=== PATIENT | male | born 1945 | race Caucasian/White ===

== ENCOUNTER 2022-06-15 12:57 | Inpatient (IN) ==
[2022-06-15] MEDS ORDERED: SODIUM CHLORIDE 0.9% 1000ML 500 ML IV ONE (13:31)
[2022-06-15] MEDS ORDERED: ACETAMINOPHEN 500 MG TAB PO STA (13:33)
--- NOTE | 2022-06-15 13:37 | Emergency Department Note ---
Impression & Plan Acute UTI, Leukocytosis, Dysuria, Fever ED Provider Note NAME: PERLA GAUTAM AGE: 76 SEX: M : 1945 ARRIVES VIA: Walk-In INFORMANT: [Patient][family] ED PROVIDER(S): [Odell De La Vega MD] CHIEF COMPLAINT: Bladder pain HISTORY OF PRESENT ILLNESS: The patient is a 76-year-old male states that around 10 hours ago, he woke from sleep with fever, chills and the urge to urinate. He had a hard time going to the bathroom and it did burn to urinate. He does have body aching. He denies flank pain, no increased cough or congestion, he has chronic dyspnea from COPD. Patient does have a history of prostate surgery for obstruction, he had a catheter at that timeframe but has not had a Marie catheter since. PMHx/PSHx: See Below SOCIAL HISTORY: See Below. PHYSICAL EXAM: GENERAL: Patient is in no acute distress. HEENT: No acute trauma, normocephalic atraumatic, mucous membranes moist, no myles al congestion. NECK: No stridor, no adenopathy, no meningismus, trachea is midline. LUNGS: Diminished breath sounds bilaterally with some occasional crackles, breath sounds are equal, no respiratory distress. HEART: Without murmurs gallops or rubs, regular rate and rhythm. ABDOMEN: Soft, nontender, bowel sounds positive, no peritonitis. EXTREMITIES: No cyanosis, trace to mild bilateral pedal edema, full range of motion of all the joints without pain or difficulty, no signs for acute trauma. NEUROLOGIC: Oriented x 3, no acute motor or sensory deficits, no focal weakness. SKIN: No rash, no jaundice, no diaphoresis. Back: No flank discomfort to percussion. DIFFERENTIAL DIAGNOSIS: Sepsis or bacteremia, urinary obstruction, kidney stone, UTI, pyelonephritis, diverticulitis, electrolyte imbalance or renal failure, viral illness, among others. EMERGENCY DEPARTMENT COURSE/PROCEDURES: Prior/Outside records reviewed: None. Bladder scan showed 49 cc, no significant retention. MEDICAL DECISION MAKING: There is a significant leukocytosis of 27,000, this would be consistent with infection. There is a normal hemoglobin and platelet count. Sodium slightly low but not in need of emergent correction. No renal failure. Lactic acid level was not elevated making severe sepsis less likely. There was no concerning liver enzyme elevation. No evidence for pancreatitis. Urinalysis does suggest infection. COVID test returned negative. Abdominal and pelvis CT did not show any evidence for urinary obstruction, no diverticulitis. No acute surgical process by CT imaging. Bladder scan showed only 49 cc, no significant retention. Chest film per my review did not show mediastinal widening, pneumonia or free air. On exam, the patient did not have any abdominal discomfort, he was resting comfortably. The patient received IV saline, cc. He was given IV cefepime, IV morphine. He was given oral Tylenol. The patient is currently resting comfortably. Given the high white count, given his complaints, given the urinary findings, I do think hospitalization would be warranted. I spoke with the patient and case management, the on-call hospitalist was consulted. DISPOSITION: The patient's presentation and findings warrant a hospital stay. Past Med/Surg History Medical History BPH (benign prostatic hyperplasia) s/p TURP type laser procedure COPD (chronic obstructive pulmonary disease) GERD (gastroesophageal reflux disease) History of testicular cancer Hyperlipidemia Hypertension Lung cancer Prediabetes Testicular cancer Tremor Family History (Updated 02/17/22 @ 10:58 by KRISTIN Garcia) Other Allergies Cancer Emphysema lung Lung disease Denies family history of Diabetes Heart disease Asthma Social History Smoking Status: Former smoker Tobacco Type: Cigarettes Age Started Using Tobacco: 15; packs per day: 1; Hx Alcohol Use: Yes Hx Substance Use: No Preferred Language: [place] Feels Safe at Home: Yes Allergies Allergies Allergy/AdvReac Type Severity Reaction Status Date / Time bee venom protein (honey bee) Allergy Severe Anaphylaxis Verified 06/15/22 17:05 atorvastatin Allergy Intermediate Muscle Pain Verified 06/15/22 17:05 Home Meds Home Medications Medication Instructions Recorded Confirmed acetaminophen 650 mg 650 mg PO Q8H 02/10/22 06/15/22 tablet,extended release (Tylenol 8 Hour) amlodipine 10 mg tablet 10 mg PO DAILY 02/10/22 06/15/22 budesonide 160 mcg-glycopyr 9 2 inh inhalation BID 02/10/22 06/15/22 mcg-formot 4.8 mcg/actuation HFA inhaler (Breztri Aerosphere) cholecalciferol (vitamin D3) 25 25 mcg PO DAILY 02/10/22 06/15/22 mcg (1,000 unit) capsule epinephrine 1 mg/mL injection 1 mg IM Q20M PRN Anaphylaxis 02/10/22 06/15/22 solution glucosamine HCl 1,500 mg tablet 1,500 mg PO DAILY 02/10/22 06/15/22 losartan 100 mg tablet 100 mg PO DAILY 02/10/22 06/15/22 lutein extract 15 mg-zeaxanthin 1 cap PO BID 02/10/22 06/15/22 extract 0.7 mg capsule metoprolol succinate 50 mg 50 mg PO DAILY 02/10/22 06/15/22 tablet,extended release 24 hr multivitamin 1 tab PO DAILY 02/10/22 06/15/22 rabeprazole 20 mg tablet,delayed 20 mg PO BID 02/10/22 06/15/22 release (AcipHex) red yeast rice 600 mg capsule 600 mg PO BID 02/10/22 06/15/22 vitamin B complex (Vitamins B 1 cap PO DAILY 02/10/22 06/15/22 Complex capsule) duloxetine 60 mg capsule,delayed 60 mg PO DAILY 02/17/22 06/15/22 release (Cymbalta) primidone 50 mg tablet 50 mg PO BID 06/15/22 06/15/22 Results & Data (ED) Vital Signs Vital Signs - 24 hr 06/15/22 13:01 06/15/22 14:32 06/15/22 14:30 Temperature 36.6 C Temperature Source Oral Pulse Rate 110 H Pulse Rate [Apical] 108 H Pulse Rhythm Regular Pulse Rhythm [Apical] Regular Pulse Strength Normal Pulse Strength [Apical] Respiratory Rate 22 24 Respiratory Effort / Characteristics Non-Labored Spontaneous Non-Labored Spontaneous Respiratory Depth Normal Normal Respiratory Pattern Regular Blood Pressure 147/67 H Blood Pressure [Right Arm] 147/77 H Blood Pressure Mean 93 Blood Pressure Mean [Right Arm] 100 Blood Pressure Position Sitting Blood Pressure Position [Right Arm] Pulse Oximetry 95 94 94 Oxygen Delivery Method Room Air Room Air Room Air Sepsis Recent Fever Within 48 Hours Yes Sepsis New/Unexplained Change in Mental Status No Sepsis Action Taken by Nursing No Action Required 06/15/22 14:38 06/15/22 16:00 06/15/22 17:00 Temperature Temperature Source Pulse Rate 107 H Pulse Rate [Apical] 103 H 102 H Pulse Rhythm Pulse Rhythm [Apical] Regular Regular Pulse Strength Pulse Strength [Apical] Normal Normal Respiratory Rate 20 21 Respiratory Effort / Characteristics Non-Labored Spontaneous Non-Labored Spontaneous Respiratory Depth Normal Normal Respiratory Pattern Regular Regular Blood Pressure Blood Pressure [Right Arm] 133/71 129/78 Blood Pressure Mean Blood Pressure Mean [Right Arm] 91 95 Blood Pressure Position Blood Pressure Position [Right Arm] Lying Lying Pulse Oximetry 93 93 Oxygen Delivery Method Room Air Room Air Sepsis Recent Fever Within 48 Hours Sepsis New/Unexplained Change in Mental Status Sepsis Action Taken by [facility] Medications Current Medication List: was personally reviewed by me Laboratory Data Attestation: I reviewed the patient's lab results. 06/15/22 13:21 06/15/22 13:21 Lab Results 06/15/22 06/15/22 06/15/22 Range/Units 13:21 13:21 13:41 WBC 27.70 H (4.8-10.8) K/ul RBC 4.73 (4.70-6.10) M/uL Hgb 15.3 (14.0-18.0) g/dl Hct 44.4 (42.0-52.0) % MCV 93.9 (80.0-100.0) fL MCH 32.3 (25.0-34.0) pg MCHC 34.5 (32.0-36.0) g/dL RDW Std Deviation 46.9 H (36.4-46.3) fL RDW Coeff of Bryce 13.5 (11.5-14.5) % Plt Count 262 (130-400) K/uL MPV 9.3 L (9.4-12.4) fL Immature Gran % (Auto) 1.3 % Neut % (Auto) 81.9 % Lymph % (Auto) 6.5 % Cavalier % (Auto) 10.0 % Eos % (Auto) 0.1 % Baso % (Auto) 0.2 % Neut # (Auto) 22.68 H (1.40-6.50) K/uL Lymph # (Auto) 1.80 (1.2-3.4) K/uL Cavalier # (Auto) 2.77 H (0.11-0.59) K/uL Eos # (Auto) 0.03 (0-0.50) K/uL Baso # (Auto) 0.06 (0-0.2) K/uL Immature Gran # (Auto) 0.36 H (0.01-0.20) K/uL Hypersegmented Neuts 1+ Sodium 135 L (136-145) mmol/L Potassium 4.2 (3.5-5.1) mmol/L Chloride 103 (98-107) mmol/L Carbon Dioxide 24 (21-32) mmol/L Anion Gap 8 (3-11) BUN 16 (6-23) mg/dl Creatinine 0.98 (0.6-1.4) mg/dl Est Cr Clr Drug Dosing 78.8 ml/min Est GFR ( Amer) 85.8 ml/min Est GFR (Non-Af Amer) 74.1 ml/min BUN/Creatinine Ratio 16.3 (10-20) Glucose 111 H (70-99(Fasting)) mg/dl Lactate (0.4-2.0) mmol/L Calcium 9.1 (8.6-10.3) mg/dl Magnesium 1.8 (1.7-2.4) mg/dl Total Bilirubin 0.7 (0.2-1.0) mg/dl AST 29 (13-39) U/L ALT 36 (7-52) U/L Alkaline Phosphatase 82 (34-104) U/L Total Protein 7.3 (6.0-8.3) gm/dl Albumin 4.2 (3.4-5.0) gm/dl Globulin 3.1 (2.5-4.0) gm/dl Albumin/Globulin Ratio 1.4 (0.9-2) Lipase 10 L (11-82) U/L Prostate Specific Ag (0-4) ng/ml Procalcitonin (0-0.5) ng/ml Urine Color Urine Appearance (Clear) Urine pH (4.5-7.5) Ur Specific Mack (1.000-1.030) Urine Protein (Negative) Urine Glucose (UA) (Negative) Urine Ketones (Negative) Urine Blood (Negative) Urine Nitrite (Negative) Urine Bilirubin (Negative) Urine Urobilinogen (Negative) Ur Leukocyte Esterase (Negative) Urine WBC (Auto) (0-5) /hpf Urine RBC (Auto) (0-4) /hpf U Hyaline Cast (Auto) (0-5) /lpf U Epithel Cells (Auto) (0-5) /lpf Urine Bacteria (Auto) (Negative) SARS-CoV-2, RNA, NAAT NEGATIVE (NEGATIVE) 06/15/22 06/15/22 06/15/22 Range/Units 13:41 14:18 16:14 WBC (4.8-10.8) K/ul RBC (4.70-6.10) M/uL Hgb (14.0-18.0) g/dl Hct (42.0-52.0) % MCV (80.0-100.0) fL MCH (25.0-34.0) pg MCHC (32.0-36.0) g/dL RDW Std Deviation (36.4-46.3) fL RDW Coeff of Bryce (11.5-14.5) % Plt Count (130-400) K/uL MPV (9.4-12.4) fL Immature Gran % (Auto) % Neut % (Auto) % Lymph % (Auto) % Cavalier % (Auto) % Eos % (Auto) % Baso % (Auto) % Neut # (Auto) (1.40-6.50) K/uL Lymph # (Auto) (1.2-3.4) K/uL Cavalier # (Auto) (0.11-0.59) K/uL Eos # (Auto) (0-0.50) K/uL Baso # (Auto) (0-0.2) K/uL Immature Gran # (Auto) (0.01-0.20) K/uL Hypersegmented Neuts Sodium (136-145) mmol/L Potassium (3.5-5.1) mmol/L Chloride (98-107) mmol/L Carbon Dioxide (21-32) mmol/L Anion Gap (3-11) BUN (6-23) mg/dl Creatinine (0.6-1.4) mg/dl Est Cr Clr Drug Dosing ml/min Est GFR ( Amer) ml/min Est GFR (Non-Af Amer) ml/min BUN/Creatinine Ratio (10-20) Glucose (70-99(Fasting)) mg/dl Lactate 1.6 (0.4-2.0) mmol/L Calcium (8.6-10.3) mg/dl Magnesium (1.7-2.4) mg/dl Total Bilirubin (0.2-1.0) mg/dl AST (13-39) U/L ALT (7-52) U/L Alkaline Phosphatase (34-104) U/L Total Protein (6.0-8.3) gm/dl Albumin (3.4-5.0) gm/dl Globulin (2.5-4.0) gm/dl Albumin/Globulin Ratio (0.9-2) Lipase (11-82) U/L Prostate Specific Ag (0-4) ng/ml Procalcitonin 1.07 H (0-0.5) ng/ml Urine Color Dark Yellow Urine Appearance Clear (Clear) Urine pH 5.5 (4.5-7.5) Ur Specific Mack 1.015 (1.000-1.030) Urine Protein Trace H (Negative) Urine Glucose (UA) Negative (Negative) Urine Ketones Negative (Negative) Urine Blood 1+ H (Negative) Urine Nitrite Negative (Negative) Urine Bilirubin Negative (Negative) Urine Urobilinogen Negative (Negative) Ur Leukocyte Esterase 2+ H (Negative) Urine WBC (Auto) >30 H (0-5) /hpf Urine RBC (Auto) 5-10 H (0-4) /hpf U Hyaline Cast (Auto) 1-5 (0-5) /lpf U Epithel Cells (Auto) 0-5 (0-5) /lpf Urine Bacteria (Auto) 2+ H (Negative) SARS-CoV-2, RNA, NAAT (NEGATIVE) 06/15/22 Range/Units 16:14 WBC (4.8-10.8) K/ul RBC (4.70-6.10) M/uL Hgb (14.0-18.0) g/dl Hct (42.0-52.0) % MCV (80.0-100.0) fL MCH (25.0-34.0) pg MCHC (32.0-36.0) g/dL RDW Std Deviation (36.4-46.3) fL RDW Coeff of Bryce (11.5-14.5) % Plt Count (130-400) K/uL MPV (9.4-12.4) fL Immature Gran % (Auto) % Neut % (Auto) % Lymph % (Auto) % Cavalier % (Auto) % Eos % (Auto) % Baso % (Auto) % Neut # (Auto) (1.40-6.50) K/uL Lymph # (Auto) (1.2-3.4) K/uL Cavalier # (Auto) (0.11-0.59) K/uL Eos # (Auto) (0-0.50) K/uL Baso # (Auto) (0-0.2) K/uL Immature Gran # (Auto) (0.01-0.20) K/uL Hypersegmented Neuts Sodium (136-145) mmol/L Potassium (3.5-5.1) mmol/L Chloride (98-107) mmol/L Carbon Dioxide (21-32) mmol/L Anion Gap (3-11) BUN (6-23) mg/dl Creatinine (0.6-1.4) mg/dl Est Cr Clr Drug Dosing ml/min Est GFR ( Amer) ml/min Est GFR (Non-Af Amer) ml/min BUN/Creatinine Ratio (10-20) Glucose (70-99(Fasting)) mg/dl Lactate (0.4-2.0) mmol/L Calcium (8.6-10.3) mg/dl Magnesium (1.7-2.4) mg/dl Total Bilirubin (0.2-1.0) mg/dl AST (13-39) U/L ALT (7-52) U/L Alkaline Phosphatase (34-104) U/L Total Protein (6.0-8.3) gm/dl Albumin (3.4-5.0) gm/dl Globulin (2.5-4.0) gm/dl Albumin/Globulin Ratio (0.9-2) Lipase (11-82) U/L Prostate Specific Ag 22.584 H (0-4) ng/ml Procalcitonin (0-0.5) ng/ml Urine Color Urine Appearance (Clear) Urine pH (4.5-7.5) Ur Specific Mack (1.000-1.030) Urine Protein (Negative) Urine Glucose (UA) (Negative) Urine Ketones (Negative) Urine Blood (Negative) Urine Nitrite (Negative) Urine Bilirubin (Negative) Urine Urobilinogen (Negative) Ur Leukocyte Esterase (Negative) Urine WBC (Auto) (0-5) /hpf Urine RBC (Auto) (0-4) /hpf U Hyaline Cast (Auto) (0-5) /lpf U Epithel Cells (Auto) (0-5) /lpf Urine Bacteria (Auto) (Negative) SARS-CoV-2, RNA, NAAT (NEGATIVE) Administered Medications Discontinued Medications Acetaminophen (Acetaminophen 500 Mg Tab) 1,000 mg PO NOW STA Stop: 06/15/22 13:34 Last Admin: 06/15/22 14:27 Dose: 1,000 mg Documented By: ZANA Sodium Chloride (Nss 1000ml) 500 mls @ 999 mls/hr IV .Q31M ONE Stop: 06/15/22 14:01 Last Infusion: 06/15/22 15:10 Dose: 0 mls/hr Documented By: Admin: 06/15/22 14:28 Dose: 999 mls/hr Documented By: ZANA Cefepime HCl (Maxipime) 2,000 mg in 20 mls @ 5 mls/min IV NOW STA; Protocol Stop: 06/15/22 15:05 Last Admin: 06/15/22 15:10 Dose: 5 mls/min Documented By: EMILY Ibuprofen (Ibuprofen 600 Mg Tab) 600 mg PO NOW STA Stop: 06/15/22 16:47 Last Admin: 06/15/22 17:15 Dose: 600 mg Documented By: EMILY Morphine Sulfate (Morphine Sulfate 4 Mg/Ml 1 Ml Carp\Vial) 4 mg IV NOW STA Stop: 06/15/22 14:52 Last Admin: 06/15/22 15:09 Dose: 4 mg Documented By: EMILY Imaging Data Radiologist's Impression: Abdomen/Pelvis CT 06/15/22 13:31 CT abd pelvis wo con CLINICAL HISTORY: poss urinary obstruction TECHNIQUE: Helical axial images of the abdomen and pelvis were obtained. Automated dose lowering techniques and/or adjustment according to patient size were utilized for this exam. This exam was performed without intravenous contrast. CT DOSE: 1421.70 mGy.cm COMPARISON: None available at the time of this dictation. FINDINGS: Lower chest: No acute abnormality. Liver: Punctate calcifications are seen in the liver. Hepatic steatosis is seen. Gallbladder and biliary tree: Cholelithiasis is seen without evidence of cholecystitis. No intra- or extrahepatic biliary ductal dilation. Pancreas: Unremarkable, no focal lesions. Spleen: Calcifications are noted in the spleen compatible with prior granulomatous disease. Adrenals: Unremarkable. Kidneys and ureters: Renal cysts are seen. Bladder: Limited evaluation due to underdistention. Reproductive organs: Unremarkable. Bowel: The appendix is normal. Lymph nodes Retroperitoneal: Subcentimeter jaida hepatis nodes are noted. Pelvic: Subcentimeter lymph nodes are noted. Mesenteric: Unremarkable. Peritoneum: Normal. Vessels: Atherosclerotic calcifications are seen. Abdominal wall: Bilateral fat-containing inguinal hernias are seen. Umbilical hernia is seen. Bones: Degenerative changes in the visualized spine. IMPRESSION: 1. No acute abnormalities. Bilateral renal cysts are seen with no evidence of obstruction. 2. Hepatic steatosis is seen. 3. Findings suggestive of prior granulomatous disease. ACT 112: Negative or not required by law. Electronically signed by: Renato Parra M.D. 06/15/2022 2:55 PM Chest X-Ray 06/15/22 13:31 XR chest 1V portable CLINICAL HISTORY: Shortness of breath. COMPARISON STUDY: Chest CT January 24, 2022. FINDINGS: Postoperative findings within the right hemithorax are incidentally noted. There is no pneumothorax or pleural effusion. There are calcified granulomas within the left upper lobe. No evidence for pulmonary edema. Cardiomediastinal silhouette is stable. Minimal left basilar opacity favors atelectasis. IMPRESSION: No acute cardiopulmonary findings. ACT 112: Negative or not required by law. Electronically signed by: Talib López M.D. 06/15/2022 2:09 PM Discharge Plan Visit Data Chief Complaint: Urinary Symptoms Stated Complaint: blood in urine ED Provider: Odell De La Vega Discharge Problem: Acute UTI, Leukocytosis, Dysuria, Fever Patient Disposition: Admitted As Inpatient Condition: Good Forms Stand Alone Forms: My [facility] Prescriptions Prescriptions: No Action acetaminophen [Tylenol 8 Hour] 650 mg tablet extended release 650 mg PO Q8H amlodipine 10 mg tablet 10 mg PO DAILY vitamin B complex [Vitamins B Complex] Capsule 1 cap PO DAILY Breztri Aerosphere 160-9-4.8 mcg/actuation HFA aerosol inhaler 2 inh inhalation BID cholecalciferol (vitamin D3) 25 mcg (1,000 unit) capsule 25 mcg PO DAILY epinephrine 1 mg/mL solution 1 mg IM Q20M PRN (Reason: Anaphylaxis) Rx Instructions: for 2 doses glucosamine HCl 1,500 mg tablet 1,500 mg PO DAILY Rx Instructions: administer with a meal losartan 100 mg tablet 100 mg PO DAILY lutein extract-zeaxanthin ext 15-0.7 mg capsule 1 cap PO BID metoprolol succinate 50 mg tablet extended release 24 hr 50 mg PO DAILY multivitamin Tablet 1 tab PO DAILY rabeprazole [AcipHex] 20 mg tablet,delayed release (DR/EC) 20 mg PO BID red yeast rice 600 mg capsule 600 mg PO BID Rx Instructions: give with meal/snack duloxetine [Cymbalta] 60 mg capsule,delayed release(DR/EC) 60 mg PO DAILY primidone 50 mg tablet 50 mg PO BID Referrals Referrals: Unknown,Unknown [] -
[2022-06-15 13:53] LABS: Appearance Urine Clear (Clear); Bacteria Urine Automated 2+ (Negative); Bilirubin Urine Negative (Negative); Blood Urine 1+ (Negative); Color Urine Dark Yellow; Epithelial Cell Urine Auto 0-5 /lpf (0-5); Glucose Urine UA Negative (Negative); Ketones Urine Negative (Negative); Leukocyte Esterase Urine 2+ (Negative); Nitrite Urine Negative (Negative); Protein Urine Trace (Negative); Specific Gravity Urine 1.015 (1.000-1.030); Urobilinogen Urine Negative (Negative); WBC Urine Automated >30 /hpf (0-5); pH Urine 5.5 (4.5-7.5)
--- NOTE | 2022-06-15 14:10 | XRay Report ---
XR chest 1V portable CLINICAL HISTORY: Shortness of breath. COMPARISON STUDY: Chest CT January 24, 2022. FINDINGS: Postoperative findings within the right hemithorax are incidentally noted. There is no pneu mothorax or pleural effusion. There are calcified granulomas within the left upper lobe. No evidence for pulmonary edema. Cardiomediastinal silhouette is stable. Minimal left basilar opacity favors atel ectasis. IMPRESSION: No acute cardiopulmonary findings. ACT 112: Negative or not required by law. Electronically signed by: Talib López M.D. 06/15/2022 2:09 PM
[2022-06-15 14:44] LABS: Hematocrit (blood only) 44.4 % (42.0-52.0); Hemoglobin 15.3 g/dl (14.0-18.0); Mean Corpuscular Hemoglobin 32.3 pg (25.0-34.0); Mean Corpuscular Hgb Conc 34.5 g/dL (32.0-36.0); Mean Corpuscular Volume 93.9 fL (80.0-100.0); Mean Platelet Volume 9.3 fL (9.4-12.4); Platelet Count 262 K/uL (130-400); RDW Coefficient of Variation 13.5 % (11.5-14.5); RDW Standard Deviation 46.9 fL (36.4-46.3); Red Blood Count 4.73 M/uL (4.70-6.10)
[2022-06-15] MEDS ORDERED: MoRPHine SULFATE 4 MG/ML 1 ML CARP\\VIAL IV STA (14:51)
[2022-06-15 14:56] LABS: Albumin Globulin Ratio 1.4 (0.9-2); Albumin Level 4.2 gm/dl (3.4-5.0); BUN Creatinine Ratio 16.3 (10-20); Bilirubin,Total 0.7 mg/dl (0.2-1.0); Calcium 9.1 mg/dl (8.6-10.3); Creatinine Clr Calc Pharmacy 78.8 ml/min; Est GFR (African American) 85.8 ml/min; Est GFR (Non-African American) 74.1 ml/min; Globulin 3.1 gm/dl (2.5-4.0); Magnesium 1.8 mg/dl (1.7-2.4); Potassium 4.2 mmol/L (3.5-5.1); Total Protein 7.3 gm/dl (6.0-8.3)
--- NOTE | 2022-06-15 14:56 | CT Scan Report ---
CT abd pelvis wo con CLINICAL HISTORY: poss urinary obstruction TECHNIQUE: Helical axial images of the abdomen and pelvis were obtained. Automated dose lowering tech niques and/or adjustment according to patient size were utilized for this exam. This exam was perfor med without intravenous contrast. CT DOSE: 1421.70 mGy.cm COMPARISON: None available at the time of this dictation. FINDINGS: Lower chest: No acute abnormality. Liver: Punctate calcifications are seen in the liver. Hepatic steatosis is seen. Gallbladder and biliary tree: Cholelithiasis is seen without evidence of cholecystitis. No intra- or extrahepatic biliary ductal dilation. Pancreas: Unremarkable, no focal lesions. Spleen: Calcifications are noted in the spleen compatible with prior granulomatous disease. Adrenals: Unremarkable. Kidneys and ureters: Renal cysts are seen. Bladder: Limited evaluation due to underdistention. Reproductive organs: Unremarkable. Bowel: The appendix is normal. Lymph nodes Retroperitoneal: Subcentimeter jaida hepatis nodes are noted. Pelvic: Subcentimeter lymph nodes are noted. Mesenteric: Unremarkable. Peritoneum: Normal. Vessels: Atherosclerotic calcifications are seen. Abdominal wall: Bilateral fat-containing inguinal hernias are seen. Umbilical hernia is seen. Bones: Degenerative changes in the visualized spine. IMPRESSION: 1. No acute abnormalities. Bilateral renal cysts are seen with no evidence of obstruction. 2. Hepatic steatosis is seen. 3. Findings suggestive of prior granulomatous disease. ACT 112: Negative or not required by law. Electronically signed by: Renato Parra M.D. 06/15/2022 2:55 PM
[2022-06-15] MEDS ORDERED: CEFEPIME 2,000 MG/20 ML VIAL IV STA (15:02)
[2022-06-15 15:16] LABS: Basophils # (auto) 0.06 K/uL (0-0.2); Basophils % (auto) 0.2 %; Eosinophils # (auto) 0.03 K/uL (0-0.50); Eosinophils % (auto) 0.1 %; Hypersegmented Neutrophils 1+; Immature Granulocytes # (auto) 0.36 K/uL (0.01-0.20); Immature Granulocytes % (auto) 1.3 %; Lymphocytes % (auto) 6.5 %; Monocytes # (auto) 2.77 K/uL (0.11-0.59); Neutrophils # (auto) 22.68 K/uL (1.40-6.50); Neutrophils % (auto) 81.9 %
[2022-06-15] MEDS ORDERED: IBUPROFEN 600 MG TAB PO STA (16:46)
--- NOTE | 2022-06-15 16:53 | History & Physical Report ---
Date of Service June 15, 2022 Assessment & Plan (1) Sepsis: (2) Urinary tract infection: (3) History of testicular cancer: (4) GERD (gastroesophageal reflux disease): (5) BPH (benign prostatic hyperplasia): (6) Prediabetes: (7) Tremor: (8) Hyperlipidemia: (9) Hypertension: (10) COPD (chronic obstructive pulmonary disease): (11) Lung cancer: (12) Elevated PSA: Plan Sepsis Urinary tract infection Leukocytosis of 27.7 and tachycardic at time of admission. Lactate normal, slight elevation of Pro-Ulysses at 1.07. CMP grossly normal, normal creatinine at time of admission UA positive for trace protein, +1 blood, leukocyte esterase, white blood cells, and bacteria. Chest x-ray negative Abdominal pelvis CT showed no acute abnormalities, though did show bilateral renal cysts without evidence of obstruction. Patient's bladder scan with 45 ml urine, currently does not have symptoms of urinary retention. Given cefepime in the ED.continue q8hr 2gm -follow cultures We will trend CBC and CMP. Elevated PSA Patient has known history of BPH with TURP procedure, as well as testicular cancer, and lung cancer status post lobectomy. PSA of 22. We will consult urology given new onset of elevated PSA with new onset of urinary complaints. Headache Was given morphine in the ED. We will try Motrin at this time and reassess. GERD Continue home rabeprazole. Tremor Patient currently is on duloxetine and primidone but unsure why he takes it for. We will continue at this time. Hypertension Continue home amlodipine and metoprolol. COPD Continue home inhaler regimen. Heparin SQ Full code Low salt diet/NSS for 1L History of Present Illness Chief Complaint: Urinary tract infection Primary Care Provider: Taiwo Peterson MD Patient is a 76-year-old male recently moved to the area from [place]. Has a past medical history of hypertension, hyperlipidemia, prediabetes, essential tremor, emphysema, GERD, obstructive sleep apnea no longer using CPAP, adenocarcinoma of the lung status post lobectomy from 2012, orchiectomy due to testicular cancer back in 2019, TURP approximately 4 years ago for BPH. Patient woke up this morning at 3 AM with shivers and fever. States that he tried to go to the bathroom and was unable to urinate. States that it hurt when he peed. He also complains of back pain bilaterally. Patient was having trouble urinating with dysuria throughout the day and was only able to get a little out. States that he has never had this before. Patient denies nausea, vomiting, chest pain, or shortness of breath. Patient also complains of a headache. Allergies Allergy/AdvReac Type Severity Reaction Status Date / Time bee venom protein (honey bee) Allergy Severe Anaphylaxis Verified 06/15/22 17:05 atorvastatin Allergy Intermediate Muscle Pain Verified 06/15/22 17:05 Home Medications Medication Instructions Recorded Confirmed Type acetaminophen 650 mg 650 mg PO Q8H 02/10/22 06/15/22 History tablet,extended release (Tylenol 8 Hour) amlodipine 10 mg tablet 10 mg PO DAILY 02/10/22 06/15/22 History budesonide 160 mcg-glycopyr 9 2 inh inhalation BID 02/10/22 06/15/22 History mcg-formot 4.8 mcg/actuation HFA inhaler (Microbix Biosystemsztri Inventorumphere) cholecalciferol (vitamin D3) 25 25 mcg PO DAILY 02/10/22 06/15/22 History mcg (1,000 unit) capsule epinephrine 1 mg/mL injection 1 mg IM Q20M PRN Anaphylaxis 02/10/22 06/15/22 History solution glucosamine HCl 1,500 mg tablet 1,500 mg PO DAILY 02/10/22 06/15/22 History losartan 100 mg tablet 100 mg PO DAILY 02/10/22 06/15/22 History lutein extract 15 mg-zeaxanthin 1 cap PO BID 02/10/22 06/15/22 History extract 0.7 mg capsule metoprolol succinate 50 mg 50 mg PO DAILY 02/10/22 06/15/22 History tablet,extended release 24 hr multivitamin 1 tab PO DAILY 02/10/22 06/15/22 History rabeprazole 20 mg tablet,delayed 20 mg PO BID 02/10/22 06/15/22 History release (AcipHex) red yeast rice 600 mg capsule 600 mg PO BID 02/10/22 06/15/22 History vitamin B complex (Vitamins B 1 cap PO DAILY 02/10/22 06/15/22 History Complex capsule) duloxetine 60 mg capsule,delayed 60 mg PO DAILY 02/17/22 06/15/22 History release (Cymbalta) primidone 50 mg tablet 50 mg PO BID 06/15/22 06/15/22 History Past Med/Surg History Medical History BPH (benign prostatic hyperplasia) s/p TURP type laser procedure COPD (chronic obstructive pulmonary disease) GERD (gastroesophageal reflux disease) History of testicular cancer Hyperlipidemia Hypertension Lung cancer Prediabetes Testicular cancer Tremor Family History Other Allergies Cancer Emphysema lung Lung disease Denies family history of Diabetes Heart disease Asthma Social History Smoking Status: Former smoker Tobacco Type: Cigarettes Age Started Using Tobacco: 15; packs per day: 1; Hx Alcohol Use: Yes Hx Substance Use: No Preferred Language: Ukrainian Feels Safe at Home: Yes Review of Systems Review of Systems: All systems reviewed & are unremarkable except as noted in Subjective Physical Exam Physical Exam: Constitutional: well-appearing, no acute distress HEENT: NCAT, no conjunctival injection CV: regular rhythm, no murmur appreciated, extremities well-perfused, no LE edema Resp: CTABL, no wheezes/rales/rhonchi appreciated, no increased work of breathing GI: soft, nondistended, nontender, BS normoactive MSK: no gross deformities appreciated Skin: warm, dry, no rash appreciated Neuro: alert, oriented, no focal neurologic deficit appreciated Results & Data Results & Data Vital Signs (Past 12 Hours) Vital Signs Temp Pulse Pulse Resp BP BP Pulse Ox 06/15/22 16:00 103 H 20 133/71 93 06/15/22 14:38 107 H 06/15/22 14:30 108 H 24 147/77 H 94 06/15/22 14:32 94 06/15/22 13:01 36.6 C 110 H 22 147/67 H 95 O2 Del Method 06/15/22 16:00 Room Air 06/15/22 14:38 06/15/22 14:30 Room Air 06/15/22 14:32 Room Air 06/15/22 13:01 Room Air Supervising Physician Co-Signing Physician Notes Resident Physician Supervision Note: I independently interviewed and examined the patient and verified the dietrich history and physical, reviewed labs and image studies and agree with resident findings and care plan. Resident Activity Tracking Resident Involvement: Resident Care Provided Care Provided: Adult [facility] Medicine
[2022-06-15] MEDS ORDERED: EPINEPHrine INJ 1 MG/ML AMP IM PRN ×2 (19:19→19:45)
[2022-06-15] MEDS ORDERED: POLYETHYLENE (MIRALAX) 17 GM PACK PO PRN (19:19)
[2022-06-15] MEDS ORDERED: ONDANSETRON INJ 2 MG/ML 2 ML VIAL IV PRN (19:19)
[2022-06-15] MEDS ORDERED: MAGNESIUM HYDROXIDE SUSP 30 ML UDC PO PRN (19:19)
[2022-06-15] MEDS ORDERED: ALUMINUM/MAGNESIUM SUSP 30 ML UDC PO PRN (19:19)
[2022-06-15] MEDS: PANTOprazole 40 MG TAB PO SCH (20:37)
[2022-06-15] MEDS: SODIUM CHLORIDE 0.9% 1000ML 1,000 ML IV SCH (20:37)
[2022-06-15] MEDS: PRIMIDONE 50 MG TAB PO SCH (20:37)
[2022-06-15] MEDS: HEPARIN SOD 5,000 UNIT/0.5 ML VIAL SQ SCH (20:42)
[2022-06-15] MEDS ORDERED: NON-FORMULARY MEDICATION (Red Yeast Rice 600 mg capsule) PO SCH (21:00)
[2022-06-15] MEDS ORDERED: NON-FORMULARY MEDICATION (Budesonide-Glycopyr-Formoterol [Breztri Aerosphere] 160-9-4.8 mc INH SCH (21:00)
--- NOTE | 2022-06-15 21:23 | Urology Consultation ---
Date of Consultation June 15, 2022 Assessment & Plan (1) Elevated PSA: Patient has been admitted on the hospitalist service. We recommend proceeding as follows: Continue hydration measures with intravenous fluids. Patient has been placed on antibiotics in the form of cefepime. Appropriate cultures have been sent and antibiotics can be further tailored based on these results Would recommend obtaining postvoid residuals via bladder scan after patient voids to ensure he is not retaining urine. If patient is found to be retaining significant amount of urine straight catheterization can be employed to ensure adequate bladder emptying. It is nowhere the mention that the patient reportedly had a bladder scan performed in the emergency department where he only had 45 cc of residual urine. Although the patient has a noted leukocytosis and slight tachycardia, he is normotensive and afebrile. There is also no obstructive process noted on patient's CT scan, therefore I do not feel an emergent urologic procedure is indicated. Concerning patient's elevated PSA, he does report that earlier this year he was told he had a nonelevated PSA. Tomorrow morning we will attempt to obtain the name of patient's local urologist or potentially obtain records from patient's urologist in [place], [place] to obtain recent labs/records for comparison as this will help us ascertain if patient's PSA has been elevated in the past or if this is an entirely new finding. Further recommendation will be made based on patient's response to the antibiotics for his UTI as well as information obtained from records from his other urologist. (2) Urinary tract infection: History of Present Illness Reason for Consultation: Elevated PSA Urinary tract infection Attending Physician: Tania Stark MD History of Present Illness This is a 76-year-old male who presented to [facility] emergency department at the recommendation of the clinician he saw at a local urgent care center. Patient says that he went to urgent care earlier today as last evening he developed a feverish feeling with shakes and chills. The patient further relates that since last night he has been having difficulty with urinating stating he has had trouble initiating a urine stream. He also notes burning with urination and a feeling of incomplete bladder emptying. He reports urinary frequency but denied any gross hematuria. He denies any back or flank pain. The patient denies any perineal pain. The patient reports that he was told he had blood in his urine at the urgent care center and was subsequent referred to the emergency department for further evaluation. The patient says he does have a urologic history that was significant for a transurethral section of the prostate that he says was done earlier this year at [facility] in [place], [place]. The patient also notes that his most recent PSA was was checked earlier this year and to the best of his knowledge was not elevated. The patient has since moved to [facility] from the [facility] and he has established with a local urologist but he cannot remember the name. Since arrival to the hospital the patient has had labs and imaging which I independent reviewed. Chest x-ray showed no evidence of pneumonia. A CT scan of the abdomen and pelvis showed no acute abnormalities, however there were bilateral renal cysts without evidence of obstruction noted. Labs include a CBC her white blood cell count was elevated at 27.7. Hemoglobin, hematocrit, and platelet count were normal. Chemistry profile showed sodium was 135. Potassium, BUN, and creatinine were normal. Magnesium was within the normal range and LFTs were unremarkable for elevation. Lipase was nonelevated. The patient did have a PSA that was elevated at 22.58. A urinalysis was performed that showed 1+ blood and was negative for nitrites. There was 2+ leukocyte Estrace and greater than 30 white blood cells per high-power field. There is also 2+ bacteria on the study. A COVID test was negative. At the time of my interview the patient was resting comfortably in bed and he was in no distress. Allergies Allergy/AdvReac Type Severity Reaction Status Date / Time bee venom protein (honey bee) Allergy Severe Anaphylaxis Verified 06/15/22 17:05 atorvastatin Allergy Intermediate Muscle Pain Verified 06/15/22 17:05 Home Medications Medication Instructions Recorded Confirmed Type acetaminophen 650 mg 650 mg PO Q8H 02/10/22 06/15/22 History tablet,extended release (Tylenol 8 Hour) amlodipine 10 mg tablet 10 mg PO DAILY 02/10/22 06/15/22 History budesonide 160 mcg-glycopyr 9 2 inh inhalation BID 02/10/22 06/15/22 History mcg-formot 4.8 mcg/actuation HFA inhaler (Breztri Aerosphere) cholecalciferol (vitamin D3) 25 25 mcg PO DAILY 02/10/22 06/15/22 History mcg (1,000 unit) capsule epinephrine 1 mg/mL injection 1 mg IM Q20M PRN Anaphylaxis 02/10/22 06/15/22 History solution glucosamine HCl 1,500 mg tablet 1,500 mg PO DAILY 02/10/22 06/15/22 History losartan 100 mg tablet 100 mg PO DAILY 02/10/22 06/15/22 History lutein extract 15 mg-zeaxanthin 1 cap PO BID 02/10/22 06/15/22 History extract 0.7 mg capsule metoprolol succinate 50 mg 50 mg PO DAILY 02/10/22 06/15/22 History tablet,extended release 24 hr multivitamin 1 tab PO DAILY 02/10/22 06/15/22 History rabeprazole 20 mg tablet,delayed 20 mg PO BID 02/10/22 06/15/22 History release (AcipHex) red yeast rice 600 mg capsule 600 mg PO BID 02/10/22 06/15/22 History vitamin B complex (Vitamins B 1 cap PO DAILY 02/10/22 06/15/22 History Complex capsule) duloxetine 60 mg capsule,delayed 60 mg PO DAILY 02/17/22 06/15/22 History release (Cymbalta) primidone 50 mg tablet 50 mg PO BID 06/15/22 06/15/22 History Patient History Medical History BPH (benign prostatic hyperplasia) s/p TURP type laser procedure COPD (chronic obstructive pulmonary disease) GERD (gastroesophageal reflux disease) History of testicular cancer Hyperlipidemia Hypertension Lung cancer Prediabetes Testicular cancer Tremor Family History Other Allergies Cancer Emphysema lung Lung disease Denies family history of Diabetes Heart disease Asthma Social History Smoking Status: Former smoker Tobacco Type: Cigarettes Age Started Using Tobacco: 15; packs per day: 1; Second Hand Exposure: No; Do You Dip or Chew Tobacco: No; Hx Alcohol Use: Yes Alcohol type: beer Hx Substance Use: No Preferred Language: Upper Sorbian Communication Ability: Effective Counterintelligence/Humint Specialist Required: No Beliefs That Will Affect Care: None Current Living Situation: Spouse Other Information That Helps Us Care for You: No Feels Safe at Home: Yes Safety Concerns: Feels Safe At This Time Assistive Devices: None Review of Systems Constitutional: + fever, + chills and + sweats Eyes: no eye pain Ear, Nose, Mouth, Throat: no hearing loss Respiratory: no cough and no dyspnea Cardiovascular: no chest pain Gastrointestinal: no abdominal pain, no nausea and no vomiting Genitourinary: + as per Subjective / HPI Musculoskeletal: no back pain Integumentary: no rash Neurologic: no localized weakness Physical Exam Constitutional: WD/WN, vitals as above well developed and well nourished; no acute distress Eyes: no conjunctival abnormality ENMT: Ears: no hearing impairment and no external ear abnormality Mouth: no oropharynx abnormality Neck: trachea midline Respiratory: normal respiratory effort; no respiratory distress and no labored breathing Cardiovascular: Rate/Rhythm: regular rate and regular rhythm Vessels: dorsalis pedis pulses present and radial pulses present Gastrointestinal (Abdomen): Abdomen is rotund but soft. It is nonrigid and nondistended. There are no masses organomegaly. There is no rebound tenderness or guarding. There is no pain with palpation. Musculoskeletal: No calf tenderness Skin: no rashes Neurologic: moves all extremities Psychiatric: A+Ox3, euthymic affect Genitourinary: Patient's perineum was examined. There is no skin discoloration or pain with palpation of the perineal area. There is no crepitus in the soft tissue. There is no CVA tenderness with percussion bilaterally Results & Data Vital Signs (Past 12 Hours) Vital Signs Temp Pulse Pulse Pulse Resp BP BP 06/15/22 20:00 06/15/22 19:19 36.6 C 102 H 18 145/72 H 06/15/22 18:00 100 H 18 122/65 06/15/22 17:00 102 H 21 129/78 06/15/22 16:00 103 H 20 133/71 06/15/22 14:38 107 H 06/15/22 14:30 108 H 24 147/77 H 06/15/22 14:32 06/15/22 13:01 36.6 C 110 H 22 147/67 H Pulse Ox O2 Del Method 06/15/22 20:00 Room Air 06/15/22 19:19 93 Room Air 06/15/22 18:00 91 Room Air 06/15/22 17:00 93 Room Air 06/15/22 16:00 93 Room Air 06/15/22 14:38 06/15/22 14:30 94 Room Air 06/15/22 14:32 94 Room Air 06/15/22 13:01 95 Room Air PG Care Time/CCT Total # of Minutes Spent Total Time Spent with Patient: Total time spent is greater than 50% in coordination of care (as documented) at patient's floor/unit and/or counseling patient: Coding Level of Care Code 68515 INT INP/OBS CARE 3/75MIN Diagnoses Elevated PSA R97.20 Urinary tract infection N39.0
[2022-06-15] MEDS: CEFEPIME 2,000 MG in SYRINGE 0 ML IV SCH (21:59)
[2022-06-15] MEDS: ACETAMINOPHEN 325 MG TAB PO PRN (22:02)
[2022-06-15] MEDS ORDERED: IBUPROFEN 600 MG TAB PO PRN (23:06)
[2022-06-16] MEDS ORDERED: HYDROmorphone INJ 0.5 MG/0.5 ML SYR IV STA ×2 (00:39→19:58)
[2022-06-16] MEDS: CEFEPIME 2,000 MG in SYRINGE 0 ML IV SCH ×3 (06:27→21:09)
[2022-06-16] MEDS: HEPARIN SOD 5,000 UNIT/0.5 ML VIAL SQ SCH ×3 (06:28→21:09)
[2022-06-16] MEDS: ACETAMINOPHEN 325 MG TAB PO PRN ×2 (06:33→11:57)
[2022-06-16 07:44] LABS: Hematocrit (blood only) 39.3 % (42.0-52.0); Hemoglobin 13.6 g/dl (14.0-18.0); Mean Corpuscular Hemoglobin 32.6 pg (25.0-34.0); Mean Corpuscular Hgb Conc 34.6 g/dL (32.0-36.0); Mean Corpuscular Volume 94.2 fL (80.0-100.0); Mean Platelet Volume 9.2 fL (9.4-12.4); Platelet Count 198 K/uL (130-400); RDW Coefficient of Variation 13.5 % (11.5-14.5); RDW Standard Deviation 46.6 fL (36.4-46.3); Red Blood Count 4.17 M/uL (4.70-6.10)
[2022-06-16 08:01] LABS: Albumin Globulin Ratio 1.3 (0.9-2); Albumin Level 3.4 gm/dl (3.4-5.0); BUN Creatinine Ratio 16.7 (10-20); Calcium 8.2 mg/dl (8.6-10.3); Creatinine Clr Calc Pharmacy 91.5 ml/min; Est GFR (African American) 97.9 ml/min; Est GFR (Non-African American) 84.5 ml/min; Globulin 2.6 gm/dl (2.5-4.0)
--- NOTE | 2022-06-16 08:02 | Hospitalist Progress Note ---
Date of Service June 16, 2022 Assessment & Plan (1) Sepsis: (2) Urinary tract infection: (3) History of testicular cancer: (4) GERD (gastroesophageal reflux disease): (5) BPH (benign prostatic hyperplasia): (6) Prediabetes: (7) Tremor: (8) Hyperlipidemia: (9) Hypertension: (10) COPD (chronic obstructive pulmonary disease): (11) Lung cancer: (12) Elevated PSA: Plan Sepsis Urinary tract infection Leukocytosis of 27.7 and tachycardic at time of admission. Lactate normal, slight elevation of Pro-Ulysses at 1.07. -Blood cultures grew gram-negative bacilli. Sensitivities pending. Blood cultures negative to date. Given cefepime in the ED.continue q8hr 2gm We will trend CBC and CMP. Elevated PSA Patient has known history of BPH with TURP procedure, as well as testicular cancer, and lung cancer status post lobectomy. PSA of 22. Patient's bladder scan with 45 ml urine, currently does not have symptoms of urinary retention. We will consult urology given new onset of elevated PSA with new onset of urinary complaints. -- Urology will plan to see patient as an outpatient to repeat PSA. -- Continue with IV fluids, no obstructive process at this time and no urgent urology intervention needed at this time. -- Added in postvoid bladder scans. Patient urinated this morning and postvoid bladder scan showed no retention of urine. -- Should be on a 14-day course of antibiotics for UTI/possible prostatitis. --Consider adding on alpha-brooklyn. Headache Likely sec to infection. We will try Toradol 15 mg IV every 6 hours as needed. Reassess in the morning. GERD Continue home rabeprazole. Tremor Patient currently is on duloxetine and primidone but unsure why he takes it for. We will continue at this time. Hypertension Continue home amlodipine and metoprolol. COPD Continue home inhaler regimen. Heparin SQ Full code Low salt diet Admission and Anticipated Discharge Date Admission Date: June 15, 2022 Supervising Physician Co-Signing Physician Notes Resident Physician Supervision Note: I independently interviewed and examined the patient and verified the dietrich history and physical, reviewed labs and image studies and agree with resident findings and care plan. Subjective Patient was seen bedside this morning. Patient states that he was able to urinate this morning without any issues. He denies any urinary hesitation or dysuria and had a good stream. He states that he has had a headache that responded well to IV Dilaudid overnight. States that his headache has returned and currently a 3-4 out of 10. Review of Systems Review of Systems: All systems reviewed & are unremarkable except as noted in Subjective Physical Exam Physical Exam: Constitutional: well-appearing, no acute distress HEENT: NCAT, no conjunctival injection CV: regular rhythm, no murmur appreciated, extremities well-perfused, no LE edema Resp: CTABL, no wheezes/rales/rhonchi appreciated, no increased work of breathing GI: soft, nondistended, nontender, BS normoactive MSK: no gross deformities appreciated Skin: warm, dry, no rash appreciated Neuro: alert, oriented, no focal neurologic deficit appreciated Results & Data Results & Data Vital Signs (Past 12 Hours) Vital Signs Temp Pulse Resp BP Pulse Ox O2 Del Method 06/16/22 07:15 36.3 C L 95 H 18 118/73 94 Room Air 06/15/22 23:22 36.7 C Resident Activity Tracking Resident Involvement: Resident Care Provided Care Provided: Adult Hospital Medicine
[2022-06-16 08:05] LABS: Basophils # (auto) 0.05 K/uL (0-0.2); Basophils % (auto) 0.2 %; Eosinophils # (auto) 0.08 K/uL (0-0.50); Eosinophils % (auto) 0.3 %; Immature Granulocytes # (auto) 0.32 K/uL (0.01-0.20); Immature Granulocytes % (auto) 1.3 %; Lymphocytes # (auto) 1.73 K/uL (1.2-3.4); Lymphocytes % (auto) 7.1 %; Monocytes # (auto) 2.16 K/uL (0.11-0.59); Monocytes % (auto) 8.8 %; Neutrophils # (auto) 20.16 K/uL (1.40-6.50); Neutrophils % (auto) 82.3 %
[2022-06-16] MEDS: SODIUM CHLORIDE 0.9% 1000ML 1,000 ML IV SCH (08:50)
[2022-06-16] MEDS: amLODIPine BESYLATE 5 MG TAB PO SCH (08:51)
[2022-06-16] MEDS: METOPROLOL SUCC 50MG EXT REL TAB PO SCH (08:51)
[2022-06-16] MEDS: PRIMIDONE 50 MG TAB PO SCH (08:51)
[2022-06-16] MEDS: DULoxetine HCL 60 MG CAP PO SCH (08:51)
[2022-06-16] MEDS: PANTOprazole 40 MG TAB PO SCH ×2 (08:51→21:08)
[2022-06-16] MEDS: LOSARTAN POTASSIUM 50 MG TAB PO SCH (08:52)
[2022-06-16] MEDS: MULTIVITAMIN TAB PO SCH (08:52)
[2022-06-16] MEDS: FLUTICASONE FUROATE 200MCG 14 PUFFS/INHALER INH SCH (08:53)
[2022-06-16] MEDS: UMECLIDINIUM/VILANTEROL 62.5/25MCG 7 PUFFS/INHALER INH SCH (08:58)
--- NOTE | 2022-06-16 12:12 | Urology Progress Note ---
Date of Service June 16, 2022 Assessment & Plan (1) Urinary tract infection: (2) Elevated PSA: (3) BPH (benign prostatic hyperplasia): (4) History of testicular cancer: Plan 76yo/M admitted with sepsis, UTI. Urology consulted d/t elevated PSA, hx of TURP, urinary symptoms. -Afebrile and hemodynamically stable. -Labs reviewed-leukocytosis of 27-24 today, hemoglobin 13.6, creatinine 0.84. Continue to trend. -Urine culture preliminary gram-negative bacilli, blood cultures pending. On IV cefepime. -Voiding spontaneously. Postvoid bladder scans have been appropriate. Continue to monitor. -CT abdomen pelvis on admit notes no acute abnormalities. Bilateral renal cysts are seen with no evidence of obstruction. -PSA noted to be 22.584. Patient reported to me a hx of elevated PSA with prior neg biopsy, unsure of details/timeframe. Will need to obtain prior records from Urologist in [place] for further review. -PSA may also be elevated due to UTI, possible prostatitis. Will plan to repeat PSA as an outpatient after infection has cleared. -Continue supportive care. Continue antibiotics and tailor as culture data becomes available. -Will likely need at least 14 days of antibiotics for UTI, possible prostatitis. -Can also consider addition of alpha-brooklyn. -Will arrange outpatient follow-up with our service for continued care, repeat PSA. We will obtain prior urology records for review. -Patient agreeable to plan, all questions were answered. -Urology will sign-off. Please contact us with any further questions, concerns, or changes in patient status. Admission and Anticipated Discharge Date Admission Date: June 15, 2022 Subjective Patient examined at bedside this morning. Awake, resting in bed on arrival. No acute distress. He reports a headache this morning. Denies abdominal, flank, or suprapubic pain. Reports he is voiding without issue. Feels he is emptying his bladder well. Denies hematuria or dysuria. No fevers. Patient reports previously following with a urologist in [place] (Dr. Antony) and also in [place] (unsure of name). States he was last seen by the urologist in [place] approximately 4 months ago. He reports a history of BPH status post TURP and testicular cancer status post orchiectomy. He also reports a history of elevated PSA with prior negative biopsies, unsure of exact date. Review of Systems Constitutional: as per Subjective / HPI Gastrointestinal: as per Subjective / HPI Genitourinary: + as per Subjective / HPI Physical Exam Constitutional: no acute distress Respiratory: normal respiratory effort; no respiratory distress and no labored breathing Musculoskeletal: Head/Neck/Chest: normocephalic Skin: No visible rashes or lesions to exposed skin areas Neurologic: moves all extremities and awake Psychiatric: A+Ox3, euthymic affect Results & Data Vital Signs (Past 12 Hours) Vital Signs Temp Pulse Resp BP Pulse Ox O2 Del Method 06/16/22 07:15 36.3 C L 95 H 18 118/73 94 Room Air 06/15/22 23:22 36.7 C PG Care Time/CCT Total # of Minutes Spent Total Time Spent with Patient: Total time spent is greater than 50% in coordination of care (as documented) at patient's floor/unit and/or counseling patient: Coding Level of Care Code 00257 SUB INP/OBS CARE 2/35MIN Diagnoses Urinary tract infection N39.0 Elevated PSA R97.20 BPH (benign prostatic hyperplasia) N40.0 History of testicular cancer Z85.47
[2022-06-16] MEDS: KETOROLAC TROMETHAMINE 15 MG/ML VIAL IV PRN (14:08)
[2022-06-17] MEDS: CEFEPIME 2,000 MG in SYRINGE 0 ML IV SCH (06:03)
[2022-06-17] MEDS: HEPARIN SOD 5,000 UNIT/0.5 ML VIAL SQ SCH (06:03)
[2022-06-17 06:27] LABS: Basophils # (auto) 0.03 K/uL (0-0.2); Basophils % (auto) 0.2 %; Eosinophils # (auto) 0.14 K/uL (0-0.50); Eosinophils % (auto) 0.9 %; Hematocrit (blood only) 37.3 % (42.0-52.0); Hemoglobin 12.9 g/dl (14.0-18.0); Immature Granulocytes % (auto) 0.6 %; Lymphocytes # (auto) 2.18 K/uL (1.2-3.4); Lymphocytes % (auto) 13.9 %; Mean Corpuscular Hemoglobin 32.3 pg (25.0-34.0); Mean Corpuscular Hgb Conc 34.6 g/dL (32.0-36.0); Mean Corpuscular Volume 93.5 fL (80.0-100.0); Mean Platelet Volume 9.3 fL (9.4-12.4); Monocytes # (auto) 1.16 K/uL (0.11-0.59); Monocytes % (auto) 7.4 %; Neutrophils # (auto) 12.02 K/uL (1.40-6.50); Platelet Count 186 K/uL (130-400); RDW Coefficient of Variation 13.1 % (11.5-14.5); RDW Standard Deviation 45.1 fL (36.4-46.3); Red Blood Count 3.99 M/uL (4.70-6.10); White Blood Count 15.63 K/ul (4.8-10.8)
[2022-06-17 06:47] LABS: Albumin Globulin Ratio 1.2 (0.9-2); Albumin Level 3.2 gm/dl (3.4-5.0); BUN Creatinine Ratio 14.1 (10-20); Bilirubin,Total 0.5 mg/dl (0.2-1.0); Calcium 8.2 mg/dl (8.6-10.3); Creatinine Clr Calc Pharmacy 77.6 ml/min; Est GFR (African American) 84.8 ml/min; Est GFR (Non-African American) 73.2 ml/min; Globulin 2.7 gm/dl (2.5-4.0); Potassium 3.8 mmol/L (3.5-5.1); Total Protein 5.9 gm/dl (6.0-8.3)
--- NOTE | 2022-06-17 06:48 | Hospitalist Progress Note ---
Date of Service June 17, 2022 Assessment & Plan (1) Sepsis: (2) Urinary tract infection: (3) History of testicular cancer: (4) GERD (gastroesophageal reflux disease): (5) BPH (benign prostatic hyperplasia): (6) Prediabetes: (7) Tremor: (8) Hyperlipidemia: (9) Hypertension: (10) COPD (chronic obstructive pulmonary disease): (11) Lung cancer: (12) Elevated PSA: (13) Meningioma: Plan Sepsis Urinary tract infection Leukocytosis of 27.7 and tachycardic at time of admission. Lactate normal, slight elevation of Pro-Ulysses at 1.07. -Blood cultures grew gram-negative bacilli. Sensitivities pending. Blood cultures negative to date. Given cefepime in the ED.continue q8hr 2gm We will trend CBC and CMP. Elevated PSA Patient has known history of BPH with TURP procedure, as well as testicular cancer, and lung cancer status post lobectomy. PSA of 22. Patient's bladder scan with 45 ml urine, currently does not have symptoms of urinary retention. We will consult urology given new onset of elevated PSA with new onset of urinary complaints. -- Urology will plan to see patient as an outpatient to repeat PSA. -- Continue with IV fluids, no obstructive process at this time and no urgent urology intervention needed at this time. -- Added in postvoid bladder scans. Patient urinated this morning and postvoid bladder scan showed no retention of urine. -- Should be on a 14-day course of antibiotics for UTI/possible prostatitis. --Consider adding on alpha-brooklyn. Headache Likely sec to infection. We will try Toradol 15 mg IV every 6 hours as needed. Reassess in the morning. GERD Continue home rabeprazole. Tremor Patient currently is on duloxetine and primidone but unsure why he takes it for. We will continue at this time. Hypertension Continue home amlodipine and metoprolol. COPD Continue home inhaler regimen. Heparin SQ Full code Low salt diet Admission and Anticipated Discharge Date Admission Date: June 16, 2022 Subjective Patient was seen bedside this morning. He has been urinating well and has no issues with dysuria or urinary retention. Patient does state that his headache has not improved much since admission. States that he has never had headaches like this before. States that it started about 3 AM on Sunday morning which woke him up from his sleep. Describes the headache as a dull headache. Patient states that he believes that it may be related to his brain "nodule" on his frontal lobe has been there since approximately 2014. States that he was supposed to have a MRI recently but was lost to follow-up due to moving. Used to follow with dr. vanessa courtney who is a neurosurgeon in [facility]. Review of Systems Review of Systems: All systems reviewed & are unremarkable except as noted in Subjective Physical Exam Physical Exam: Constitutional: well-appearing, no acute distress HEENT: NCAT, no conjunctival injection CV: regular rhythm, no murmur appreciated, extremities well-perfused, no LE edema Resp: CTABL, no wheezes/rales/rhonchi appreciated, no increased work of breathing GI: soft, nondistended, nontender, BS normoactive MSK: no gross deformities appreciated Skin: warm, dry, no rash appreciated Neuro: alert, oriented, no focal neurologic deficit appreciated Results & Data Results & Data Vital Signs (Past 12 Hours) Vital Signs Temp Pulse Resp BP Pulse Ox O2 Del Method 06/16/22 21:26 37.3 C 89 20 114/54 L 95 Room Air
[2022-06-17] MEDS: PANTOprazole 40 MG TAB PO SCH (08:06)
[2022-06-17] MEDS: MULTIVITAMIN TAB PO SCH (08:07)
[2022-06-17] MEDS: LOSARTAN POTASSIUM 50 MG TAB PO SCH (08:07)
[2022-06-17] MEDS: DULoxetine HCL 60 MG CAP PO SCH (08:07)
[2022-06-17] MEDS: amLODIPine BESYLATE 5 MG TAB PO SCH (08:08)
[2022-06-17] MEDS: FLUTICASONE FUROATE 200MCG 14 PUFFS/INHALER INH SCH (08:08)
[2022-06-17] MEDS: UMECLIDINIUM/VILANTEROL 62.5/25MCG 7 PUFFS/INHALER INH SCH (08:08)
[2022-06-17] MEDS: METOPROLOL SUCC 50MG EXT REL TAB PO SCH (08:08)
[2022-06-17] MEDS: ACETAMINOPHEN 325 MG TAB PO PRN (08:14)
[2022-06-17] MEDS: KETOROLAC TROMETHAMINE 15 MG/ML VIAL IV PRN (08:15)
--- NOTE | 2022-06-17 11:00 | CT Scan Report ---
CT OF THE HEAD WITHOUT CONTRAST CLINICAL HISTORY: New onset headache. COMPARISON STUDY: No previous studies for comparison. CT DOSE: 614.27 mGy.cm TECHNIQUE: Helical axial images of the head were obtained without IV contrast. Automated exposure con trol was utilized for the study. A dose lowering technique was utilized adhering to the principles o f ALARA. FINDINGS: No acute intracranial hemorrhage, midline shift or mass effect is present. Ventricular syst em is unremarkable. Basal cisterns are patent. There are no extra-axial collections. Bilateral basal ganglia calcifications are incidentally noted. White matter hypodensities suggest mild small vessel d isease. There are no findings to suggest acute dural sinus thrombosis or acute territorial infarct. T here is a partially calcified 1 cm extra-axial lesion overlying the right frontal lobe on axial image 21 of 32. There is smooth associated remodeling of the inner table of the calvarium. No acute calvar ial fracture is present. Mastoid air cells are clear. Mild polypoid mucosal thickening of the right m axillary sinus is present. No evidence for acute sinusitis. IMPRESSION: 1. No acute intracranial findings. 2. 1 cm extra-axial lesion overlying the right frontal lobe. This likely reflects a small meningioma. ACT 112: Negative or not required by law. Electronically signed by: Talib López M.D. 06/17/2022 10:58 AM
--- NOTE | 2022-06-17 14:21 | Discharge Summary ---
Date of Service June 17, 2022 Admission HPI Per Admitting Provider Patient is a 76-year-old male recently moved to the area from [place]. Has a past medical history of hypertension, hyperlipidemia, prediabetes, essential tremor, emphysema, GERD, obstructive sleep apnea no longer using CPAP, adenocarcinoma of the lung status post lobectomy from 2012, orchiectomy due to testicular cancer back in 2019, TURP approximately 4 years ago for BPH. Patient woke up this morning at 3 AM with shivers and fever. States that he tried to go to the bathroom and was unable to urinate. States that it hurt when he peed. He also complains of back pain bilaterally. Patient was having trouble urinating with dysuria throughout the day and was only able to get a little out. States that he has never had this before. Patient denies nausea, vomiting, chest pain, or shortness of breath. Patient also complains of a headache. Admission Exam Per Admitting Provider Constitutional: well-appearing, no acute distress HEENT: NCAT, no conjunctival injection CV: regular rhythm, no murmur appreciated, extremities well-perfused, no LE edema Resp: CTABL, no wheezes/rales/rhonchi appreciated, no increased work of breathing GI: soft, nondistended, nontender, BS normoactive MSK: no gross deformities appreciated Skin: warm, dry, no rash appreciated Neuro: alert, oriented, no focal neurologic deficit appreciated Principal Diagnosis Sepsis secondary to urinary tract infection Discharge Exam Constitutional: well-appearing, no acute distress HEENT: NCAT, no conjunctival injection CV: regular rhythm, no murmur appreciated, extremities well-perfused, no LE edema Resp: CTABL, no wheezes/rales/rhonchi appreciated, no increased work of breathing GI: soft, nondistended, nontender, BS normoactive MSK: no gross deformities appreciated Skin: warm, dry, no rash appreciated Neuro: alert, oriented, no focal neurologic deficit appreciated Discharge Data Allergies Allergy/AdvReac Type Severity Reaction Status Date / Time bee venom protein (honey bee) Allergy Severe Anaphylaxis Verified 06/15/22 17:05 atorvastatin Allergy Intermediate Muscle Pain Verified 06/15/22 17:05 Consultations 06/15/22 15:21 ED Decision to Admit Stat 06/16/22 07:00 Consult Urology Routine Procedures Performed Abnormal lab results 06/17/22 06/17/22 Range/Units 06:00 06:00 WBC 15.63 H (4.8-10.8) K/ul RBC 3.99 L (4.70-6.10) M/uL Hgb 12.9 L (14.0-18.0) g/dl Hct 37.3 L (42.0-52.0) % MPV 9.3 L (9.4-12.4) fL Neut # (Auto) 12.02 H (1.40-6.50) K/uL [place] # (Auto) 1.16 H (0.11-0.59) K/uL Sodium 133 L (136-145) mmol/L Glucose 113 H (70-99(Fasting)) mg/dl Calcium 8.2 L (8.6-10.3) mg/dl Total Protein 5.9 L (6.0-8.3) gm/dl Albumin 3.2 L (3.4-5.0) gm/dl Ordered Studies Abdomen/Pelvis CT 06/15/22 13:31 CT abd pelvis wo con CLINICAL HISTORY: poss urinary obstruction TECHNIQUE: Helical axial images of the abdomen and pelvis were obtained. Automated dose lowering techniques and/or adjustment according to patient size were utilized for this exam. This exam was performed without intravenous contrast. CT DOSE: 1421.70 mGy.cm COMPARISON: None available at the time of this dictation. FINDINGS: Lower chest: No acute abnormality. Liver: Punctate calcifications are seen in the liver. Hepatic steatosis is seen. Gallbladder and biliary tree: Cholelithiasis is seen without evidence of cholecystitis. No intra- or extrahepatic biliary ductal dilation. Pancreas: Unremarkable, no focal lesions. Spleen: Calcifications are noted in the spleen compatible with prior granulomatous disease. Adrenals: Unremarkable. Kidneys and ureters: Renal cysts are seen. Bladder: Limited evaluation due to underdistention. Reproductive organs: Unremarkable. Bowel: The appendix is normal. Lymph nodes Retroperitoneal: Subcentimeter jaida hepatis nodes are noted. Pelvic: Subcentimeter lymph nodes are noted. Mesenteric: Unremarkable. Peritoneum: Normal. Vessels: Atherosclerotic calcifications are seen. Abdominal wall: Bilateral fat-containing inguinal hernias are seen. Umbilical hernia is seen. Bones: Degenerative changes in the visualized spine. IMPRESSION: 1. No acute abnormalities. Bilateral renal cysts are seen with no evidence of obstruction. 2. Hepatic steatosis is seen. 3. Findings suggestive of prior granulomatous disease. ACT 112: Negative or not required by law. Electronically signed by: Renato Parra M.D. 06/15/2022 2:55 PM Chest X-Ray 06/15/22 13:31 XR chest 1V portable CLINICAL HISTORY: Shortness of breath. COMPARISON STUDY: Chest CT January 24, 2022. FINDINGS: Postoperative findings within the right hemithorax are incidentally noted. There is no pneumothorax or pleural effusion. There are calcified granulomas within the left upper lobe. No evidence for pulmonary edema. Cardiomediastinal silhouette is stable. Minimal left basilar opacity favors atelectasis. IMPRESSION: No acute cardiopulmonary findings. ACT 112: Negative or not required by law. Electronically signed by: Talib López M.D. 06/15/2022 2:[address] 06/17/22 08:55 CT OF THE HEAD WITHOUT CONTRAST CLINICAL HISTORY: New onset headache. COMPARISON STUDY: No previous studies for comparison. CT DOSE: 614.27 mGy.cm TECHNIQUE: Helical axial images of the head were obtained without IV contrast. Automated exposure control was utilized for the study. A dose lowering technique was utilized adhering to the principles of ALARA. FINDINGS: No acute intracranial hemorrhage, midline shift or mass effect is present. Ventricular system is unremarkable. Basal cisterns are patent. There are no extra-axial collections. Bilateral basal ganglia calcifications are incidentally noted. White matter hypodensities suggest mild small vessel disease. There are no findings to suggest acute dural sinus thrombosis or acute territorial infarct. There is a partially calcified 1 cm extra-axial lesion overlying the right frontal lobe on axial image 21 of 32. There is smooth associated remodeling of the inner table of the calvarium. No acute calvarial fracture is present. Mastoid air cells are clear. Mild polypoid mucosal thickening of the right maxillary sinus is present. No evidence for acute sinusitis. IMPRESSION: 1. No acute intracranial findings. 2. 1 cm extra-axial lesion overlying the right frontal lobe. This likely reflects a small meningioma. ACT 112: Negative or not required by law. Electronically signed by: Talib López M.D. 06/17/2022 10:58 AM 06/15/22 13:31 CT abd pelvis wo con Stat 06/17/22 08:55 CT head/brain wo con Stat Hospital Course (1) Sepsis: (2) Urinary tract infection: (3) History of testicular cancer: (4) GERD (gastroesophageal reflux disease): (5) BPH (benign prostatic hyperplasia): (6) Prediabetes: (7) Tremor: (8) Hyperlipidemia: (9) Hypertension: (10) COPD (chronic obstructive pulmonary disease): (11) Lung cancer: (12) Elevated PSA: (13) Meningioma: Plan Sepsis Urinary tract infection Leukocytosis of 27.7 and tachycardic at time of admission. Lactate normal, slight elevation of Pro-Ulysses at 1.07. Patient is leukocytosis improved to 15 at time of discharge. Recommend CBC in 1 week after discharge. - Urine cultures grew Citrobacter koseri that was pansensitive. Given cefepime while admitted to the hospital and converted to cefdinir at time of discharge. Patient should continue cefdinir for 14 days to cover for UTI as well as possible prostatitis. Elevated PSA Patient has known history of BPH with TURP procedure, as well as testicular cancer, and lung cancer status post lobectomy. PSA of 22. Patient's bladder scan with 45 ml urine, currently does not have symptoms of urinary retention. We will consult urology given new onset of elevated PSA with new onset of urinary complaints. -- Urology will plan to see patient as an outpatient to repeat PSA in 2 to 4 weeks -- No obstructive process at this time and no urgent urology intervention needed during this admission. -- Patient did not have any more episodes of urinary retention or dysuria. -- Should be on a 14-day course of antibiotics for UTI/possible prostatitis. -- The patient continues to have urinary retention than could consider alpha-brooklyn in the future. Patient should follow-up with urology in 2 to 4 weeks and have PSA retested. Headache History of meningioma Likely sec to infection or possibly dehydration. Patient's headache was relieved by NSAIDs. Patient has a history of having a "lump" on his frontal lobe diagnosed back in 2014. Patient is from [facility] and no records were able to be found at this time. CT of the head without contrast showed no acute intracranial findings but did show a 1 cm in the right frontal lobe which most likely reflects a small meningioma. Recommend patient continue using NSAIDs as needed for headache and to follow- up with his PCP in 1 week to discuss further treatment of headaches. Recommend patient follow-up PCP and obtain records from past neurosurgery visits and determine recommendations for future MRI testing for patient's hemangioma. GERD Continue home rabeprazole. Tremor Patient currently is on duloxetine and primidone but unsure why he takes it for. We will continue at this time. Hypertension Continue home amlodipine and metoprolol. COPD Continue home inhaler regimen. Total Time Total Time Spent Total Time Spent (In Minutes): 12 Discharge Plan Discharge Items Patient Disposition: Home - Self-Care Reason For Visit: FEVER, CHILLS, BURNING WITH URINATION Discharge Diagnosis: Urinary tract infection Condition on Discharge: Good Activity: Resume your previous activity Non-emergency contact: Primary Care Provider and Urologist Call non-emergency contact if: you have any medication questions, your pain is concerning for you and your temperature is above 101.5 Follow-up/Referrals: Margarita Sharpe CRNP [Nurse Practitioner] - (In 2 to 4 weeks) Taiwo Peterson MD [Primary Care Provider] - (In 1 week.) Diet: Regular Addtl Attending Provider Instructions: You were admitted to the hospital for urinary tract infection. You were treated with antibiotics and improved. A discharge summary will be sent to your primary care physician to ensure continuity of care. Please bring this discharge summary with you to your next office appointment so that your provider can review it at that time. Follow-up appointments: * We have requested a follow-up appointment with your primary care physician within one week of discharge. Please call their office if you do not hear from them. Their office number is [phone] * You should follow-up with urology in 2-4 weeks. They will reach out to you to schedule appointment. If you do not hear from them in 2-3 business days, then give them a call. Their office number is [phone]. * Keep all your follow-up appointments as already scheduled. If you cannot make an appointment, notify your provider. Medications: Your medication list has been reviewed and reconciled upon discharge to ensure accuracy and continuity of care. An updated list of all your medications is included with your hospital discharge paperwork. Please review this list closely, and make note of any changes. * We sent a new medication called cefdinir to your pharmacy. Take cefdinir 300 mg twice a day for 14 days. * If you have any issues filling these prescriptions, please call [phone] and ask to leave a message for Dr. Sage. * Take your medications as instructed; do not skip a dose of your medicines. Make sure all of your doctors know every medicine you are taking (including [id number] medicines, vitamins, and supplements). Call your primary care provider before taking any new medicines (including over- the-counter medicines, vitamins, and supplements), because some of these may interact with your current medications, or may make your symptoms worse. Tell your primary care provider if you cannot afford your medications. CONTACT YOUR PRIMARY CARE PROVIDER if you experience any of the following: * Worsening of symptoms * Fever, chills, or fatigue * Difficulty following your treatment plan, or difficulty taking medications CALL 911 OR GO TO THE EMERGENCY DEPARTMENT if you experience any of the following: * Sudden, severe abdominal pain or nausea/vomiting * Severe chest pain, or chest pain that radiates (moves) to your jaw or arm * Sudden, severe shortness of breath or difficulty breathing Thank you for allowing us to participate in your care. Pending Studies at Discharge: No Stand-Alone Forms: My [facility], Smoking Cessation Medications and DC Order Prescriptions: New cefdinir 300 mg capsule 300 mg PO BID 14 Days Qty: 28 0RF Continued acetaminophen [Tylenol 8 Hour] 650 mg tablet extended release 650 mg PO Q8H amlodipine 10 mg tablet 10 mg PO DAILY vitamin B complex [Vitamins B Complex] Capsule 1 cap PO HS Breztri Aerosphere 160-9-4.8 mcg/actuation HFA aerosol inhaler 2 inh inhalation BID cholecalciferol (vitamin D3) 25 mcg (1,000 unit) capsule 25 mcg PO HS epinephrine 1 mg/mL solution 1 mg IM Q20M PRN (Reason: Anaphylaxis) Rx Instructions: for 2 doses glucosamine HCl 1,500 mg tablet 1,500 mg PO DAILY Rx Instructions: administer with a meal losartan 100 mg tablet 100 mg PO HS lutein extract-zeaxanthin ext 15-0.7 mg capsule 1 cap PO BID metoprolol succinate 50 mg tablet extended release 24 hr 50 mg PO HS multivitamin Tablet 1 tab PO DAILY rabeprazole [AcipHex] 20 mg tablet,delayed release (DR/EC) 20 mg PO BID red yeast rice 600 mg capsule 600 mg PO BID Rx Instructions: give with meal/snack duloxetine [Cymbalta] 60 mg capsule,delayed release(DR/EC) 60 mg PO DAILY primidone 50 mg tablet PO HS Rx Instructions: times one week Discharge Orders: Discharge Order (Routine); Ordered 06/17/22 Ordered By: Odell Sage Admission Data Admit Date/Time: 06/16/22 11:38 Attending Provider: Tania Stark Admit Provider: Tania Stark Primary Care Provider: Taiwo Peterson Other Providers: Frankie Garcia ; Yohannes Weston ; Ata Perez ; Andrea Chauhan ; Margarita Sharpe ; Ronan Rayo ; Marci Birmingham ; Rizwana Kaur ; Joe Sawant ; Isaac Robins ; Kim Damon ; Tristan Nova ; Kemal Orozco Other Interventions: Discharge Summary Assessment (RN) Last Done: 06/17/22 14:43 Supervising Physician Co-Signing Physician Notes Resident Physician Supervision Note: I independently interviewed and examined the patient and verified the dietrich history and physical, reviewed labs and image studies and agree with resident findings and care plan. Resident Activity Tracking Resident Involvement: Resident Care Provided Care Provided: Adult Hospital Medicine
[2022-06-17] MEDS ORDERED: PRIMIDONE 50 MG TAB PO SCH (21:00)
== END 2022-06-17 15:35 | disposition home or self-care (01) | DRG 872 ==
LOC: 3N 12:57 → ED 12:57 → 3N 18:58